=== PATIENT | male | born 1995 | race Caucasian/White ===

== ENCOUNTER 2017-11-10 23:46 | Emergency (ER) | payer OTHER, BC ==
[2017-11-11] MEDS: BACITRACIN 0.5%/ZINC 28.35 GM OINT TOP (01:55)
== END 2017-11-11 01:45 | disposition home or self-care (01) ==
LOC: FTE 23:46
DX: T23.249A Burn of second degree of unspecified multiple fingers (nail), including thumb, initial encounter (principal); I10 Essential (primary) hypertension; Y27.9XXA Contact with unspecified hot objects, undetermined intent, initial encounter; Y92.511 Restaurant or cafe as the place of occurrence of the external cause
CPT/HCPCS: 99283

== ENCOUNTER → 2018-02-07 | Outpatient (CLI) | payer BC | END | disposition home or self-care (01) | LOC: RAD 15:41 | DX: J18.9 Pneumonia, unspecified organism (principal) | CPT/HCPCS: 71046 ==

== ENCOUNTER 2018-04-12 20:15 | Emergency (ER) | payer BC ==
[2018-04-12] MEDS: IBUPROFEN 600 MG TAB PO (21:15)
== END 2018-04-12 21:24 | disposition home or self-care (01) ==
LOC: FTE 20:15
DX: S01.512A Laceration without foreign body of oral cavity, initial encounter (principal); I10 Essential (primary) hypertension; F17.210 Nicotine dependence, cigarettes, uncomplicated; X58.XXXA Exposure to other specified factors, initial encounter; Y92.9 Unspecified place or not applicable
CPT/HCPCS: 99283

== ENCOUNTER 2019-04-14 16:35 | Emergency (ER) | payer BC ==
[2019-04-14] MEDS: LIDOCAINE 1% (MDV) 20 ML INJ SC (17:18)
== END 2019-04-14 17:45 | disposition home or self-care (01) ==
LOC: FTE 16:35
DX: S61.411A Laceration without foreign body of right hand, initial encounter (principal); I10 Essential (primary) hypertension; W26.0XXA Contact with knife, initial encounter; Y92.9 Unspecified place or not applicable
CPT/HCPCS: 12001; 99282-25

== ENCOUNTER 2019-04-23 09:49 | Emergency (ER) | payer OTHER | END 2019-04-23 10:47 | disposition home or self-care (01) | LOC: FTE 09:49 | DX: Z48.02 Encounter for removal of sutures (principal); I10 Essential (primary) hypertension | CPT/HCPCS: 99281 ==